=== PATIENT | female | born 1995 | race Caucasian/White ===

== ENCOUNTER 2020-12-30 14:35 | Emergency (ER) | payer OTHER ==
[2020-12-30 20:33] LABS: HEMOGLOBIN 9.9 gm/dl (12.3-15.3); RED BLOOD COUNT 5.23 M/UL (4.00-5.10); WHITE BLOOD COUNT 6.7 K/UL (4.5-11.0)
[2020-12-30 20:53] LABS: BUN/CREATININE RATIO 20 (0-10)
[2020-12-30] MEDS ORDERED: BENTYL 10MG CAP10 MG PO (22:19)
[2020-12-30] MEDS ORDERED: ZOFRAN ODT 4 MG4 MG SL (22:19)
== END 2020-12-30 22:59 | disposition home or self-care (01) ==
LOC: ER1 14:35
PROVIDERS: Physician Assistant
DX: R10.13 Epigastric pain (principal); R11.2 Nausea with vomiting, unspecified; Z20.822 Contact with and (suspected) exposure to COVID-19
CPT/HCPCS: 80053; 83690; 84702; 85025; 93005; 96374; 96375; 96376; 99284; J2270; J2405; Q9967; U0003